=== PATIENT | male | born 2000 | race Caucasian/White ===

== ENCOUNTER 2022-08-09 14:24 | Emergency (ER) | payer OTHER, MEDICAID ==
[2022-08-09 15:11] VITALS: BP_SYST 128; PULSE 78; RESP 18; TEMP 97.9; O2SAT 97
[2022-08-09] MEDS ORDERED: IBUPROFEN 600 MG TABLET PO ONE (17:00)
[2022-08-09] MEDS ORDERED: LIDOCAINE PATCH 5% 1 EA TP ONE (17:00)
[2022-08-09 17:23] VITALS: BP_SYST 128; PULSE 78; RESP 18; TEMP 97.9; O2SAT 97
== END 2022-08-09 17:18 | disposition home or self-care (01) ==
LOC: SED 14:24
DX: S16.1XXA Strain of muscle, fascia and tendon at neck level, initial encounter (principal); Z79.899 Other long term (current) drug therapy; V89.2XXA Person injured in unspecified motor-vehicle accident, traffic, initial encounter; Y93.89 Activity, other specified; Y92.89 Other specified places as the place of occurrence of the external cause; Y99.8 Other external cause status
CPT/HCPCS: 99281; 99282